=== PATIENT | female | born 1995 | race African-American/Black ===

== ENCOUNTER 2023-09-08 23:36 | Emergency (ER) | payer MEDICAID ==
[~2023-09-08] VITALS: Ht 154.9 cm; Wt 113.5 kg
[2023-09-08 23:53] VITALS: BP 117/66; PULSE 95; RESP 17; TEMP 98.1; O2SAT 97
== END 2023-09-09 04:37 | disposition left against medical advice (07) ==
LOC: ER 23:36
DX: A64 Unspecified sexually transmitted disease (principal); Z53.21 Procedure and treatment not carried out due to patient leaving prior to being seen by health care provider
CPT/HCPCS: 99281

== ENCOUNTER 2023-09-19 02:24 | Emergency (ER) | payer MEDICAID ==
[~2023-09-19] VITALS: Ht 154.9 cm; Wt 113.0 kg
[2023-09-19 02:40] VITALS: BP 140/83; PULSE 86; RESP 18; TEMP 98.1; O2SAT 97
[2023-09-19] MEDS: AZITHROMYCIN 500 MG TABLET PO ONE (03:52)
[2023-09-19] MEDS: CEFTRIAXONE SODIUM 500MG VIAL IM ONE (03:52)
[2023-09-19] MEDS: FLUCONAZOLE 50MG TABLET PO ONE (04:08)
[2023-09-19 05:05] LABS: CLARITY URINE CLOUDY (CLEAR); COLOR URINE YELLOW (YELLOW); GLUCOSE URINE NEGATIVE (NEGATIVE); KETONES URINE TRACE (NEGATIVE); LEUKOCYTE ESTERASE URINE 3+ (NEGATIVE); NITRITE URINE NEGATIVE (NEGATIVE); OCCULT BLOOD URINE 2+ (NEGATIVE); PROTEIN URINE TRACE (NEGATIVE); SPECIFIC GRAVITY URINE 1.025 (1.005-1.030)
[2023-09-19 07:31] LABS: RBC URINE 0-2 /hpf (0-2); SQUAMOUS EPITHELIAL CELL URINE 1+ /lpf (RARE/1+)
[2023-09-19 07:32] LABS: BACTERIA URINE 1+
[2023-09-21 04:08] LABS: CHLAMYDIA TRACHOMATIS NAA Negative (Negative); NEISSERIA GONORRHOEAE NAA Negative (Negative)
== END 2023-09-19 05:13 | disposition home or self-care (01) ==
LOC: ER 02:24
DX: N76.0 Acute vaginitis (principal); F19.90 Other psychoactive substance use, unspecified, uncomplicated
CPT/HCPCS: 87491; 87591; 81003; 81025; 87086; 96372; 99283; J0696; Z7610 ×2

== ENCOUNTER 2024-01-12 00:32 | Emergency (ER) | payer MEDICAID, OTHER ==
[~2024-01-12] VITALS: Ht 154.9 cm; Wt 125.0 kg
[2024-01-12 01:09] VITALS: TEMP 98.5; O2SAT 95
[2024-01-12] MEDS ORDERED: DOXY100T2 MT (02:24)
[2024-01-12] MEDS ORDERED: BENZ100C86 MT (02:24)
[2024-01-12] MEDS: CEFTRIAXONE SODIUM 500MG VIAL IM ONE (02:26)
[2024-01-12 02:29] VITALS: BP 126/74; PULSE 95; RESP 18
[2024-01-12 02:45] LABS: CLARITY URINE CLEAR (CLEAR); COLOR URINE YELLOW (YELLOW); GLUCOSE URINE NEGATIVE (NEGATIVE); KETONES URINE NEGATIVE (NEGATIVE); LEUKOCYTE ESTERASE URINE 1+ (NEGATIVE); NITRITE URINE NEGATIVE (NEGATIVE); OCCULT BLOOD URINE NEGATIVE (NEGATIVE); PH URINE 6.5 (4.5-8.0); PROTEIN URINE NEGATIVE (NEGATIVE); SPECIFIC GRAVITY URINE 1.025 (1.005-1.030)
[2024-01-12 04:04] LABS: RBC URINE 0-2 /hpf (0-2)
[2024-01-12 04:05] LABS: BACTERIA URINE NONE SEEN; CALCIUM OXALATE CRYSTALS URINE 2+ /lpf; MUCUS URINE 2+ /lpf (< = 2+); SQUAMOUS EPITHELIAL CELL URINE 1+ /lpf (RARE/1+)
[2024-01-13 19:09] LABS: CHLAMYDIA TRACHOMATIS NAA Positive (Negative); NEISSERIA GONORRHOEAE NAA Negative (Negative)
== END 2024-01-12 02:36 | disposition home or self-care (01) ==
LOC: ER 00:32
DX: J06.9 Acute upper respiratory infection, unspecified (principal)
CPT/HCPCS: 99283; 87491; 87591; 81003; 96372; J0696

== ENCOUNTER 2024-03-09 16:13 | Emergency (ER) | payer MEDICAID ==
[~2024-03-09] VITALS: Ht 154.9 cm; Wt 118.0 kg
[~2024-03-09 16:13] MED LIST: BENZ100C86 MT; DOXY100T2 MT
[2024-03-09 16:14] VITALS: BP 144/81; PULSE 83; RESP 16; TEMP 98.3; O2SAT 98
[2024-03-09] MEDS ORDERED: IBUP-2029 MT (18:21)
[2024-03-09] MEDS: IBUPROFEN 600MG TABLET PO ONE (18:50)
== END 2024-03-09 19:43 | disposition home or self-care (01) ==
LOC: ER 16:13
DX: M79.672 Pain in left foot (principal); M79.605 Pain in left leg; M79.604 Pain in right leg; F19.90 Other psychoactive substance use, unspecified, uncomplicated
CPT/HCPCS: 73610; 73630; 29515; 99284; Z7610

== ENCOUNTER 2024-03-20 23:17 | Emergency (ER) | payer MEDICAID ==
[~2024-03-20] VITALS: Ht 154.9 cm; Wt 118.0 kg
[~2024-03-20 23:17] MED LIST changes: +IBUP-2029 MT
[2024-03-21 00:19] VITALS: O2SAT 97
[2024-03-21] MEDS ORDERED: DOXY100C5 MT (01:21)
[2024-03-21 01:24] LABS: CLARITY URINE CLEAR (CLEAR); COLOR URINE YELLOW (YELLOW); GLUCOSE URINE NEGATIVE (NEGATIVE); KETONES URINE NEGATIVE (NEGATIVE); LEUKOCYTE ESTERASE URINE TRACE (NEGATIVE); NITRITE URINE NEGATIVE (NEGATIVE); OCCULT BLOOD URINE NEGATIVE (NEGATIVE); PH URINE 6.5 (4.5-8.0); PROTEIN URINE NEGATIVE (NEGATIVE); SPECIFIC GRAVITY URINE 1.024 (1.005-1.030)
[2024-03-21 01:40] LABS: BACTERIA URINE TRACE; RBC URINE 0-2 /hpf (0-2); SQUAMOUS EPITHELIAL CELL URINE 1+ /lpf (RARE/1+)
[2024-03-21] MEDS: CEFTRIAXONE SODIUM 500MG VIAL IM ONE (02:27)
[2024-03-21 02:29] VITALS: BP 127/83; PULSE 87; RESP 18; TEMP 36.55848; O2SAT 99
[2024-03-22 13:10] LABS: CHLAMYDIA TRACHOMATIS NAA Negative (Negative); NEISSERIA GONORRHOEAE NAA Negative (Negative)
== END 2024-03-21 02:37 | disposition home or self-care (01) ==
LOC: ER 23:17
DX: Z11.3 Encounter for screening for infections with a predominantly sexual mode of transmission (principal)
CPT/HCPCS: 99283; 87491; 87591; 81003; 81025; 96372; J0696

== ENCOUNTER 2024-04-10 23:39 | Emergency (ER) | payer MEDICAID ==
[~2024-04-10] VITALS: Ht 154.9 cm; Wt 128.1 kg
[~2024-04-10 23:39] MED LIST changes: +DOXY100C5 MT
[2024-04-10 23:45] VITALS: TEMP 98; O2SAT 97
[2024-04-11] MEDS ORDERED: FLUC150T46 MT (01:56)
[2024-04-11 02:44] VITALS: BP 141/83; PULSE 82; RESP 18; O2SAT 95
== END 2024-04-11 02:46 | disposition home or self-care (01) ==
LOC: ER 23:39
DX: N89.8 Other specified noninflammatory disorders of vagina (principal); Z79.899 Other long term (current) drug therapy
CPT/HCPCS: 99283; 87210; Z7610

== ENCOUNTER 2024-06-23 11:25 | Emergency (ER) | payer MEDICAID ==
[~2024-06-23] VITALS: Ht 154.9 cm; Wt 90.7 kg
[~2024-06-23 11:25] MED LIST changes: +FLUC150T46 MT
[2024-06-23 11:31] VITALS: O2SAT 98
[2024-06-23 11:32] VITALS: BP 124/79; PULSE 91; RESP 16; TEMP 97.9; O2SAT 96
[2024-06-23 12:36] LABS: BASOPHILS % 0.5 % (0.0-2.0); DIFFERENTIAL COMMENT 0; EOSINOPHILS % 8.3 % (0.0-5.0); HEMATOCRIT. 47.3 % (36.0-48.0); LYMPHOCYTES % 22.5 % (20.0-50.0); MEAN CORPUSCULAR HEMOGLOBIN 23.5 pg (28.0-32.0); MEAN CORPUSCULAR HGB CONC 31.7 g/dL (31.0-37.0); MEAN CORPUSCULAR VOLUME 74.1 fL (81.0-99.0); MEAN PLATELET VOLUME 10.7 fl (7.4-10.4); MONOCYTES % 6.8 % (2.0-8.0); NEUTROPHILS % 61.9 % (40.0-76.0); PLATELET 244 x1000/uL (130-400); RED BLOOD CELL COUNT 6.39 mill/uL (4.2-5.4); RED CELL DISTRIBUTION WIDTH 17.4 % (11.6-14.6); WHITE BLOOD COUNT 17.1 x1000/uL (4.5-11.0)
[2024-06-23 12:47] LABS: CHLORIDE 106 mEq/L (98-107); POTASSIUM 3.6 mEq/L (3.5-5.1); SODIUM 138 mEq/L (136-145)
[2024-06-23 12:48] LABS: CARBON DIOXIDE 26 mEq/L (21-32)
[2024-06-23 12:49] LABS: CALCIUM 9.4 mg/dL (8.7-10.4)
[2024-06-23 12:53] LABS: CREATININE 0.7 mg/dL (0.6-1.0); GLUCOSE 104 mg/dL (70-105)
[2024-06-23 12:54] LABS: UREA NITROGEN BLOOD 11 mg/dL (9-23)
[2024-06-23 12:55] LABS: ALANINE AMINOTRANSFERASE 49 IU/L (10-49); ALBUMIN 4.4 g/dL (3.2-4.8); ASPARTATE AMINOTRANSFERASE 27 IU/L (<34)
[2024-06-23 12:56] LABS: BILIRUBIN DIRECT 0.2 mg/dL (<=3.0); BILIRUBIN TOTAL 0.5 mg/dL (0.1-1.0); PROTEIN TOTAL 8.1 g/dL (6.0-8.3)
[2024-06-23] MEDS: ONDANSETRON 4MG ODT PO ONE (13:19)
[2024-06-23] MEDS: MAGNESIUM/ALUMINUM HYDROXIDE/SIMETHICONE 30ML UDC PO ONE (13:19)
[2024-06-23 13:57] LABS: CLARITY URINE CLOUDY (CLEAR); COLOR URINE YELLOW (YELLOW); GLUCOSE URINE NEGATIVE (NEGATIVE); KETONES URINE NEGATIVE (NEGATIVE); LEUKOCYTE ESTERASE URINE 1+ (NEGATIVE); NITRITE URINE NEGATIVE (NEGATIVE); OCCULT BLOOD URINE TRACE (NEGATIVE); PROTEIN URINE TRACE (NEGATIVE); SPECIFIC GRAVITY URINE 1.028 (1.005-1.030); UROBILINOGEN URINE 0.2 E.U./dL (0.2-1.0)
[2024-06-23 14:17] LABS: BACTERIA URINE 1+; RBC URINE 0-2 /hpf (0-2); SQUAMOUS EPITHELIAL CELL URINE 1+ /lpf (RARE/1+); YEAST URINE NONE SEEN
[2024-06-23] MEDS ORDERED: METR70GE27 VG (14:23)
[2024-06-23] MEDS ORDERED: ONDA4TAB50 MT (14:23)
[2024-06-23] MEDS ORDERED: FAMO-287 MT (14:23)
[2024-06-25 19:06] LABS: CHLAMYDIA TRACHOMATIS NAA Negative (Negative); NEISSERIA GONORRHOEAE NAA Negative (Negative)
== END 2024-06-23 14:52 | disposition home or self-care (01) ==
LOC: ER 11:25
DX: N76.0 Acute vaginitis (principal); B96.89 Other specified bacterial agents as the cause of diseases classified elsewhere; Z79.899 Other long term (current) drug therapy; Z20.822 Contact with and (suspected) exposure to COVID-19
CPT/HCPCS: 99284; 74176; 87426; 86592; 87491; 87529 ×2; 87591; 80076; 80048; 81003; 83690; 85025; 87804 ×2; 36415; Q0162

== ENCOUNTER 2024-06-25 03:28 | Emergency (ER) | payer MEDICAID ==
[~2024-06-25] VITALS: Ht 154.9 cm; Wt 122.2 kg
[~2024-06-25 03:28] MED LIST changes: +FAMO-287 MT; +METR70GE27 VG; +ONDA4TAB50 MT
[2024-06-25 03:35] VITALS: O2SAT 96
[2024-06-25] MEDS: FAMOTIDINE 20MG TABLET PO ONE (04:15)
[2024-06-25] MEDS: DEXAMETHASONE 10 MG/ML VIAL IM ONE (04:15)
[2024-06-25] MEDS: DIPHENHYDRAMINE 25MG CAPSULE PO ONE (04:15)
[2024-06-25] MEDS: EPINEPHRINE 1:1000 1 MG/ML AMP INJ ONE (04:21)
[2024-06-25] MEDS ORDERED: EPIN0.3P3 IM (05:23)
[2024-06-25] MEDS ORDERED: DIPH25CA83 MT (05:23)
[2024-06-25] MEDS ORDERED: FAMO-135 MT (05:23)
[2024-06-25 05:30] VITALS: BP 116/85; PULSE 71; RESP 18; TEMP 36.61404; O2SAT 100
== END 2024-06-25 05:40 | disposition home or self-care (01) ==
LOC: ER 03:28
DX: T78.40XA Allergy, unspecified, initial encounter (principal); L50.9 Urticaria, unspecified; F19.90 Other psychoactive substance use, unspecified, uncomplicated; Z79.899 Other long term (current) drug therapy; X58.XXXA Exposure to other specified factors, initial encounter
CPT/HCPCS: 99284; 96374; 93005; 96372; Q0163; J1100; J3490

== ENCOUNTER 2024-08-29 16:45 | Emergency (ER) | payer MEDICAID ==
[~2024-08-29] VITALS: Ht 154.9 cm; Wt 97.9 kg
[~2024-08-29 16:45] MED LIST changes: +DIPH25CA83 MT; +EPIN0.3P3 IM; +FAMO-135 MT
[2024-08-29 16:54] VITALS: O2SAT 98
[2024-08-29 18:17] LABS: CLARITY URINE CLEAR (CLEAR); COLOR URINE YELLOW (YELLOW); GLUCOSE URINE NEGATIVE (NEGATIVE); KETONES URINE NEGATIVE (NEGATIVE); LEUKOCYTE ESTERASE URINE 3+ (NEGATIVE); NITRITE URINE NEGATIVE (NEGATIVE); OCCULT BLOOD URINE NEGATIVE (NEGATIVE); PROTEIN URINE NEGATIVE (NEGATIVE); SPECIFIC GRAVITY URINE 1.022 (1.005-1.030)
[2024-08-29 18:23] LABS: UCG KIT LOT# 888041; UCG SCREEN NEGATIVE
[2024-08-29 18:35] LABS: BACTERIA URINE 2+; RBC URINE 0-2 /hpf (0-2); SQUAMOUS EPITHELIAL CELL URINE 1+ /lpf (RARE/1+)
[2024-08-29 18:36] LABS: WBC URINE 50-100 /hpf (0-2)
[2024-08-29] MEDS ORDERED: METR-167 MT (18:50)
[2024-08-29] MEDS ORDERED: DOXY100C5 MT (18:50)
[2024-08-29] MEDS ORDERED: ONDA-239 PO (18:50)
[2024-08-29] MEDS ORDERED: CEPH500C2 MT (18:50)
[2024-08-29 19:06] VITALS: BP 126/81; PULSE 88; RESP 16; TEMP 37.1; O2SAT 98
[2024-08-29] MEDS: CEFTRIAXONE SODIUM 500MG VIAL IM ONE (19:06)
[2024-08-29] MEDS: LIDOCAINE HCL/PF 0.5% 5 MG/ML 50ML VIAL INFIL ONE (19:06)
[2024-08-31 17:07] LABS: CHLAMYDIA TRACHOMATIS NAA Negative (Negative); NEISSERIA GONORRHOEAE NAA Negative (Negative)
== END 2024-08-29 19:07 | disposition home or self-care (01) ==
LOC: ER 16:45
DX: N72 Inflammatory disease of cervix uteri (principal); N39.0 Urinary tract infection, site not specified
CPT/HCPCS: 99283; 87491; 87591; 81003; 81025; 87086; 96372; J0696

== ENCOUNTER 2024-10-09 09:47 | Emergency (ER) | payer MEDICAID ==
[~2024-10-09] VITALS: Ht 154.9 cm; Wt 117.0 kg
[~2024-10-09 09:47] MED LIST changes: +CEPH500C2 MT; +METR-167 MT; +ONDA-239 PO
[2024-10-09 09:49] VITALS: O2SAT 99
[2024-10-09 09:54] VITALS: BP 135/75; PULSE 90; RESP 16; TEMP 37; O2SAT 96
[2024-10-09] MEDS ORDERED: CEFTRIAXONE 250MG/ML (FOR IM ONLY) IM ONE (10:30)
[2024-10-09] MEDS ORDERED: AZITHROMYCIN 500 MG TABLET PO ONE (10:30)
[2024-10-09] MEDS: AZITHROMYCIN 500 MG TABLET PO NR (10:52)
[2024-10-09] MEDS: CEFTRIAXONE SODIUM 500MG VIAL IM NR (10:52)
[2024-10-09 10:57] LABS: CLARITY URINE CLEAR (CLEAR); COLOR URINE YELLOW (YELLOW); GLUCOSE URINE NEGATIVE (NEGATIVE); KETONES URINE TRACE (NEGATIVE); LEUKOCYTE ESTERASE URINE 2+ (NEGATIVE); NITRITE URINE NEGATIVE (NEGATIVE); OCCULT BLOOD URINE NEGATIVE (NEGATIVE); PH URINE 5.5 (4.5-8.0); PROTEIN URINE TRACE (NEGATIVE); SPECIFIC GRAVITY URINE 1.023 (1.005-1.030); UROBILINOGEN URINE 0.2 E.U./dL (0.2-1.0)
[2024-10-09] MEDS ORDERED: CEPH500C2 MT (11:21)
[2024-10-09 11:40] LABS: SQUAMOUS EPITHELIAL CELL URINE FEW /lpf (RARE/1+)
[2024-10-09 11:41] LABS: BACTERIA URINE TRACE; RBC URINE 0-2 /hpf (0-2); YEAST URINE NONE SEEN
[2024-10-11 05:09] LABS: CHLAMYDIA TRACHOMATIS NAA Negative (Negative); NEISSERIA GONORRHOEAE NAA Negative (Negative)
== END 2024-10-09 11:22 | disposition home or self-care (01) ==
LOC: ER 09:47
DX: N39.0 Urinary tract infection, site not specified (principal); Z11.3 Encounter for screening for infections with a predominantly sexual mode of transmission; I10 Essential (primary) hypertension
CPT/HCPCS: 99283; 87491; 87591; 81003; 81025; 96372; J0696